=== PATIENT | female | born 2000 | race Caucasian/White ===

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

== ENCOUNTER → 2020-04-12 | Outpatient (CLI) | payer BC ==
--- NOTE | 2020-04-12 09:43 | ST Modified Barium Swallow ---
Recommendation - Recommendations Recommendations: Pt presents with swallow that is WFL given age. x1 instance of flash, shallow penetration with nectar thick liquid with full ejection and very intermittent shallow instances of superior movement of thin and nectar liquid to dorsal portion of velum. Pt reports feeling liquid in nasal cavity or back of throat. No residue remained on the velum and the liquid did not reach the nasal cavity. Recommend: regular/thin diet, meds whole with thin liquid. D/t reports of increased sensation of bolus entering nasal cavity possible neurologic consult warranted to assess CNX. Medical Diagnoses - Medical Diagnoses Medical Diagnosis Description & ICD-10 Code(s): Sensation of bolus in nasal cavity Other Medical Diagnoses/Co-Morbidities: Anxiety ST Modified Barium Swallow - General Date: 04/12/20 Referring Physician: Dr. Frank Saleem Risks/Precautions: None Date of Onset: 01/12/20 - "Couple of months" - History History obtained from: Patient -: Medical, Family/Social Medications: No current meds, has been prescribed Celexa - Functional Status Prior Functional Status: INDEPENDENT: ADL Current Functional Limitations: feeding - Subjective Patient/caregiver goal(s): improve intake, safe swallow Cognitive-Linguistic Function: WNL Speech Intelligibility: WNL Current Nutritional Means: PO Current PO diet: Regular Current symptoms: other - C/o different texture boluses entering nasal cavity and sticking during swallow. Pain: 0/5 - Objective Assessment: Upright - Food Trials Used Food trials used: Thin liquids, [place] thick liquids, Pureed, Mixed consistencies, Regular, Other - tablet with thin liqud The patient: Was Able to Self Feed - Oral-Motor Skills Dentition: Full Oral Motor Skills: ST assessed for excessive tension in the pt's neck and laryngeal structures via palpation. The pt was noted to have more bulky muscles on the R side. - Assessment Oral prep: Normal Labial closure: Adequate Mastication: Adequate Lingual Movement: Normal Oral stage: Age appropriate Oral Stage: Pt WFL, adequate oral stage. No anterior or posterior loss noted. The pt did have x1 instance of bolus holding during barium tablet trial, reported it was 2/2 barium and not dysphagia. - Pharyngeal Stage Initiation of Pharyngeal Stage Reflex: Normal Decreased laryngeal elevation: No Reduced Velopharyngeal Closure: no Reduced pressure generation: No reduced tongue-based retraction: No Pre-swallow pooling in valleculae: None Pre-Swallow pooling in pyriforms: None Reduced Thyro-Hyoid approximation: No Reduced epiglottic excursion: No Reduced pharyngeal peristalsis/contraction: No Post-swallow residulas vallecular: None Post-Swallow residuals in pyriforms: None Post-Swallow Residuals: no residuals Reduced Cricopharyngeal opening: No Pharyngeal Stage Comments: x1 instance of flash, shallow penetration with nectar thick liquid with full ejection and intermittent, very shallow instances of superior movement of thin and nectar liquid to dorsal portion of velum. This was not observed with solid bolus. Pt reports feeling liquid in nasal cavity or back of throat. No residue remained on the velum and the liquid did not reach the nasal cavity. - Esophageal Stage Cricopharyngeal Function: Normal Upper Esophageal Transit: Normal Esophageal stasis/dysmotility: No Cervical Osteophytes noted: No Esophageal Stage: WFL - Fall Risk Assessment Medications/Conditions that increase fall risks include: Antidepressants, sedatives, anti-arrhythmic, diuretic, benzodiazipenes, neuroleptics. BP regulation problems, cardiac problems, balance or gait deficits, neurological problems. Is patient considered at risk for falls: no Fall Risk Actions Taken: No action needed - Behavioral Observations During evaluation process patient: was pleasant, was cooperative, able to answer questions Mental Status: Alert & Oriented X3 - Treatment / Educational Needs: Treatment/Education Needs: Treatment consisted of patient education on the role of the Speech Pathologist. Patient's plan of care and golas were communicated as well as scheduling and attendance policies. Recommendations for initial home program were shared. Patient demonstrated understanding and verbalized agreement. Initial home program recommendations: N/a, f/u with MD - Impression/Summary Laryngeal Penetration: Yes, Flash, during swallow Consistency: Thin, [place] S[place] Tracheal Aspiration: no Productive cough: No Patient presents with: Normal swallow at eval Risk of Aspiration: Minimal Risk of nutritional compromise: Moderate - Pt reports dereased pleasure with eating 2/2 stress/fear - Recommendations NPO: no Solid diet recommendations: Regular Liquid Diet Modification: Thin Strict aspiration precautions: Yes Pt/Family education and followup with MD: No Dysphagia therapy with BANK BOSS: no Reflux Precautions: Taught to Patient Recommended techniques: Fully Upright During Meal, Small Bites and Sips, Alternate Bites/Sips Supervision: Independent Information, Precautions and Recommendations: Patient (Written), Patient (Verbal) - Time Total Time: 30 - Plan of Care Patient to follow-up with referring physician: Yes Strategies to optimize patient understanding include:: ongoing assessment of educational needs, implementation of educational strategies, and re-education. - - -: Thank you for the opportunity to work with this patient and his/her family. Should you have any questions about this patient's plan or progress, I can be reached at [phone].
--- NOTE | 2020-04-12 10:32 | RADIOLOGY REPORT (SQ) ---
EXAM DESCRIPTION: COOKIE SWALLOW IMAGES COMPLETED DATE/TIME: 04/12/2020 9:39 am REASON FOR STUDY: ORAL PHASE DYSPHAGIA R13.11 DYSPHAGIA, ORAL PHASE COMPARISON: None. TECHNIQUE: Videofluoroscopic swallowing examination was performed in conjunction with speech patholo gy. Videofluoroscopic imaging was obtained and reviewed and these are the findings: RADIATION DOSE: Fluoro time 2.28 minutes 1 images saved to PACS. LIMITATIONS: None FINDINGS: The patient was brought into the fluoro room and placed upright on a modified barium swall ow chair. The patient was then given multiple consistencies mixed with barium to swallow under live fluoroscopic video guidance. According to the Speech Pathologist there was no aspiration identified. A single episode of laryngeal penetration was noted with thin barium. Several episodes of mild opal opharyngeal regurgitation was observed with thin barium. Please refer to the speech pathology report for further details. IMPRESSION: MILD NASOPHARYNGEAL REGURGITATION WITH THIN BARIUM. NO ASPIRATION IDENTIFIED. PLEASE SE E SPEECH PATHOLOGIST REPORT FOR OTHER FINDINGS AND RECOMMENDATIONS. COMMENT: NONE Quality ID [id number]: Final reports for procedures using fluoroscopy that document radiation exposure jessica jami, or exposure time and number of fluorographic images (if radiation exposure indices are not avail able) TECHNICAL DOCUMENTATION: JOB ID: [id number] 2010 [employer]- All Rights Reserved Reading location - IP/workstation name: [email or web address]
== END ==
LOC: RAD 08:30
PROVIDERS: ATTEND Otolaryngology
DX: R13.11 Dysphagia, oral phase (principal)
CPT/HCPCS: 74230